=== PATIENT | male | born 2005 | race Asian ===

== ENCOUNTER 2024-02-24 09:47 | Day surgery (SDC) | payer OTHER ==
[~2024-02-24] VITALS: Ht 167.6 cm; Wt 76.7 kg
[2024-02-24] MEDS ORDERED: MIDAZOLAM 5 MG/5 ML VIAL ONE (11:18)
[2024-02-24] MEDS ORDERED: fentaNYL citrate 0.05 MG/ML VIAL ONE (11:18)
[2024-02-24] MEDS: MIDAZOLAM 5 MG/5 ML VIAL IV ONE (11:28)
== END 2024-02-24 13:00 | disposition home or self-care (01) ==
LOC: MDS 09:47 → MMU 09:47 → MDS 13:00
PROVIDERS: ATTEND Internal Medicine Gastroenterology
DX: K11.7 Disturbances of salivary secretion (principal)
CPT/HCPCS: 43235; J2250; J3010